=== PATIENT | male | born 1970 | race Caucasian/White ===

== ENCOUNTER → 2023-05-01 07:54 | Outpatient (REF) | payer BC, SELFPAY | LOC: RAD 07:54 | PROVIDERS: ATTENDING PHYSICIAN Otolaryngology; FAMILY PHYSICIAN Family Medicine | DX: H90.A32 Mixed conductive and sensorineural hearing loss, unilateral, left ear with restricted hearing on the contralateral side (principal) | CPT/HCPCS: 70480 ==